=== PATIENT | female | born 1985 | race Caucasian/White ===

== ENCOUNTER 2016-10-12 16:56 | Emergency (ER) | payer SELFPAY ==
[2016-10-12] MEDS ORDERED: DEXAMETHASONE SOD PHOS 10 MG/1 ML VIAL ONE (18:43)
== END 2016-10-12 18:50 | disposition home or self-care (01) ==
LOC: ED 16:56
DX: J02.9 Acute pharyngitis, unspecified (principal); B34.9 Viral infection, unspecified